=== PATIENT | female | born 1945 | race Caucasian/White ===

== ENCOUNTER 2021-04-15 15:07 | Emergency (ER) | payer MEDICARE, OTHER ==
[2021-04-15 17:24] VITALS: BP 160/82; PULSE 82
--- NOTE | 2021-04-15 17:24 | EDM.PDOC ---
ED HPI GENERAL MEDICAL PROBLEM - General Chief Complaint: Respiratory Problem Stated Complaint: FEVER,VOMITTING,SHORTNESS OF BREATH Time Seen by Provider: 04/15/21 17:04 Source of Information: Reports: Patient, Family, RN Notes Reviewed History Limitations: Reports: No Limitations - History of Present Illness INITIAL COMMENTS - FREE TEXT/NARRATIVE: 75-year-old female presents emergency department day complaint of fever, nonproductive cough with diarrhea 1 episode vomiting, has been positive for COVID-19 - Related Data Allergies Allergy/AdvReac Type Severity Reaction Status Date / Time Penicillins Allergy Rash Verified 04/15/21 16:30 hydromorphone [From Dilaudid] AdvReac Nausea Verified 04/15/21 17:25 morphine AdvReac Nausea and Verified 04/15/21 17:25 Vomiting Home Meds: Home Meds Ibuprofen [Motrin] 600 mg PO Q6H tablet 01/04/15 [Rx] Albuterol Sulfate [Proair Hfa] 1 - 2 puff INH Q6H PRN 09/11/18 [History] Calcium Carb/D3/Magnesium/Zinc [Carlos Mag Zinc + D Tablet] 2 - 3 tab PO DAILY 09/11/18 [History] Cholecalciferol (Vitamin D3) [Vitamin D3] 1 tab PO DAILY 09/11/18 [History] Fluticasone Propionate [Flonase] 1 spray HUBER BID 09/11/18 [History] Multivitamin with Minerals [Multiple Vitamin] 1 tab PO DAILY 09/11/18 [History] Nitroglycerin [Nitrostat] 0.4 mg SL ASDIRECTED PRN 09/11/18 [History] Ranitidine HCl [Ranitidine] 1 tab PO DAILY PRN 09/11/18 [History] Zolpidem Tartrate [Ambien] 1 tab PO BEDTIME PRN 09/11/18 [History] Past Medical History Cardiovascular History: Reports: High Cholesterol Respiratory History: Reports: SOB Other Respiratory History: on exertion Gastrointestinal History: Reports: Cholelithiasis Other Gastrointestinal History: "hx of gallbladder trouble" 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 LOAN COORDINATOR History: Reports: Endometriosis, Endocrine/Metabolic History: Reports: Other (See Below) Other Endocrine/Metabolic History: hyperglycemia - Past Surgical History HEENT Surgical History: Reports: Adenoidectomy, Oral Surgery, Tonsillectomy GI Surgical History: Reports: Cholecystectomy, Colonoscopy Social & Family History - Tobacco Use Tobacco Use Status *Q: Former Tobacco User Used Tobacco, but Quit: Yes Month/Year Tobacco Last Used: 20 years ED ROS GENERAL - Review of Systems Review Of Systems: See Below Constitutional: Reports: Fever HEENT: Reports: No Symptoms Respiratory: Reports: Cough. Denies: Sputum Cardiovascular: Reports: No Symptoms GI/Abdominal: Reports: Diarrhea, Vomiting ED EXAM, GENERAL - Physical Exam Exam: See Below Exam Limited By: No Limitations General Appearance: Alert, WD/WN, No Apparent Distress Respiratory/Chest: No Respiratory Distress, Lungs Clear, Normal Breath Sounds, No Accessory Muscle Use, Chest Non-Tender Cardiovascular: Regular Rate, Rhythm, No Murmur Course - Vital Signs Last Recorded V/S: Last Vital Signs Temp 98.9 F 04/15/21 17:22 Pulse 82 04/15/21 17:22 Resp 18 04/15/21 17:22 BP 160/82 H 04/15/21 17:22 Pulse Ox 97 04/15/21 17:22 - Orders/Labs/Meds Labs: Laboratory Tests 04/15/21 Range/Units 16:08 SARS-CoV-2 RNA (JEREMIAH) Positive H (NEGATIVE) Departure - Departure Time of Disposition: 17:29 Disposition: Home, Self-Care 01 Condition: Fair Clinical Impression: COVID-19 - Discharge Information Instructions: 10 Things You Can Do to Manage Your COVID-19 Symptoms at Home - CDC (02/02/2021), COVID-19: How to Protect Yourself and Others - [facility] Referrals: Luly Meadows PA-C [Primary Care Provider] - Forms: ED Department Discharge Additional Instructions: Outpatient surgery center will call you tomorrow for an infusion of monoclonal antibody therapy, call return to the emergency department worsening of symptoms Sepsis Event Note (ED) - Focused Exam Vital Signs: Vital Signs Temp Pulse Resp BP Pulse Ox 04/15/21 17:22 98.9 F 82 18 160/82 H 97 - Assessment/Plan Plan: Assessment Acuity = acute Site and laterality = viral syndrome Etiology = COVID-19 Manifestations = none Location of injury = Home Lab values = positive for COVID-19 Plan She has had symptoms for 4 days she is a candidate for monoclonal antibody therapy order was set up outpatient clinic call her in the morning for appointment This note was dictated using [employer] voice recognition software please call with any questions on syntax or grammar.
== END 2021-04-15 17:44 | disposition home or self-care (01) ==
LOC: JP.ED 15:07
DX: U07.1 COVID-19 (principal); Z88.5 Allergy status to narcotic agent; Z88.0 Allergy status to penicillin; Z79.899 Other long term (current) drug therapy; Z87.891 Personal history of nicotine dependence
CPT/HCPCS: 99284; U0002